=== PATIENT | female | born 1995 | race Caucasian/White ===

== ENCOUNTER 2016-07-23 21:19 | Emergency (ER) ==
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
[2016-07-23 22:45] VITALS: BP 100/66
== END 2016-07-23 22:45 | disposition home or self-care (01) ==
LOC: P.ED 21:19
DX: O9A.212 Injury, poisoning and certain other consequences of external causes complicating pregnancy, second trimester (principal); S00.83XA Contusion of other part of head, initial encounter; Z3A.15 15 weeks gestation of pregnancy; Y04.0XXA Assault by unarmed brawl or fight, initial encounter
CPT/HCPCS: 99283

== ENCOUNTER 2016-12-31 06:37 | Inpatient (IN) ==
[2016-12-31 06:50] LABS: URINE SOURCE VOIDED
[2016-12-31 07:01] LABS: UR BARBITUATES QUAL NONE DETECTED (NONE DETECT); UR BENZODIAZEPIN QUAL NONE DETECTED (NONE DETECT); UR CANNABINOIDS QUAL NONE DETECTED (NONE DETECT); UR COCAINE QUAL NONE DETECTED (NONE DETECT); UR MDMA QUAL NONE DETECTED (NONE DETECT); UR METHADONE QUAL NONE DETECTED (NONE DETECT); UR OPIATES QUAL NONE DETECTED (NONE DETECT); UR OXYCODONE QUAL NONE DETECTED (NONE DETECT); UR PCP QUAL NONE DETECTED (NONE DETECT); UR TCA QUAL NONE DETECTED (NONE DETECT)
[2016-12-31 07:02] LABS: UR METHAMPHETAMINE QUAL PRESUMPTIVE POSITIVE (NONE DETECT)
[2016-12-31 07:03] LABS: UR AMPHETAMINES QUAL PRESUMPTIVE POSITIVE (NONE DETECT)
[2016-12-31] MEDS ORDERED: LR 1,000 ML IV SCH (07:06)
[2016-12-31] MEDS ORDERED: LR 500 ML IV ONE (07:06)
[2016-12-31] MEDS ORDERED: STADOL IV PRN (07:06)
[2016-12-31] MEDS ORDERED: PEPCID PO PRN (07:06)
[2016-12-31] MEDS ORDERED: PEPCID PO ONE (07:06)
[2016-12-31] MEDS ORDERED: PEPCID IV PRN (07:06)
[2016-12-31] MEDS ORDERED: TYLENOL PO PRN (07:06)
[2016-12-31] MEDS ORDERED: REGLAN PO ONE (07:06)
[2016-12-31] MEDS ORDERED: PITOCIN 30 UNITS/LR 30 UNITS/500 ML IV.SOLN IV SCH (07:06)
[2016-12-31] MEDS ORDERED: KEFZOL 1 GM/D5W 1 GM/50 ML IVPB IV PRN (07:06)
[2016-12-31] MEDS ORDERED: ZOFRAN IV PRN (07:06)
[2016-12-31 07:12] LABS: BILIRUBIN URINE NEGATIVE (NEGATIVE); BLOOD URINE TRACE (NEGATIVE); CLARITY SL. CLOUDY (CLEAR); COLOR AMBER; GLUCOSE URINE NEGATIVE (NEGATIVE); LEUKOCYTES URINE 2+ (NEGATIVE); NITRITE URINE NEGATIVE (NEGATIVE); PROTEIN URINE TRACE mg/dL (NEGATIVE); UROBILINOGEN URINE 1+(1 mg/dL)
[2016-12-31] MEDS ORDERED: SODIUM CHLORIDE 0.9% INJ SCH (07:15)
[2016-12-31] MEDS ORDERED: PITOCIN 30 UNITS/LR 30 UNITS/500 ML IV.SOLN ONE (07:21)
[2016-12-31] MEDS ORDERED: LR 2,000 ML ONE (07:21)
[2016-12-31] MEDS ORDERED: AMPICILLIN 2 GM/NS 2 GM/100 ML IVPB ONE (07:23)
[2016-12-31] MEDS ORDERED: NAROPIN 0.2% EPIDURAL SCH (07:30)
[2016-12-31] MEDS ORDERED: XYLOCAINE-MPF 1% INJ ONE (07:30)
[2016-12-31 07:53] LABS: MANUAL DIFF NEEDED? NO
[2016-12-31 07:56] LABS: BASO% 0.1 % (0.0-0.8); EOS# 0.05 X1000 (0.0-0.7); EOS% 0.4 % (0.0-10.0); HEMATOCRIT 31.9 % (37.0-47.0); HEMOGLOBIN 10.6 g/dL (12.0-16.0); IMM GRAN# 0.03 X1000 (0.0-0.04); IMM GRAN% 0.2 % (0.0-0.5); LYMPH# 2.27 X1000 (1.2-3.4); LYMPH% 16.5 % (20.5-51.1); MCHC 33.2 g/dL (33-37); MCV 84.4 FL (81-99); MONO# 0.94 X1000 (0.11-0.59); MONO% 6.8 % (1.7-9.3); PLT 316 X1000 (130-400); RBC 3.78 XMIL (4.2-5.4)
[2016-12-31] MEDS ORDERED: M-M-R II VACCINE SUBQ ONE (11:46)
[2016-12-31] MEDS ORDERED: HYDROXYZINE PO PRN (11:46)
[2016-12-31] MEDS ORDERED: MINERAL OIL PO PRN (11:46)
[2016-12-31] MEDS ORDERED: AMBIEN PO PRN (11:46)
[2016-12-31] MEDS ORDERED: BOOSTRIX VACCINE IM ONE (11:46)
[2016-12-31] MEDS ORDERED: NORCO-5 PO PRN (11:46)
[2016-12-31] MEDS ORDERED: HYDROXYZINE IM PRN (11:46)
[2016-12-31] MEDS ORDERED: BENADRYL PO PRN (11:46)
[2016-12-31] MEDS ORDERED: PERI MEDS (DERMOPLAST/NUPERCAINAL/TUCKS) MISC PRN (11:46)
[2016-12-31] MEDS ORDERED: BENADRYL IV PRN (11:46)
[2016-12-31] MEDS ORDERED: PITOCIN 30 UNITS/LR 30 UNITS/500 ML IV.SOLN IV ONE (11:46)
[2016-12-31] MEDS ORDERED: PITOCIN IM PRN (11:46)
[2016-12-31] MEDS ORDERED: CYTOTEC PO PRN (11:46)
[2016-12-31] MEDS ORDERED: PITOCIN 20 UNITS/LR 20 UNITS/1,000 ML IV.SOLN IV SCH (11:46)
[2016-12-31] MEDS ORDERED: XYLOCAINE-MPF 1% INJ PRN (11:46)
[2016-12-31] MEDS ORDERED: MOTRIN PO PRN (11:46)
--- NOTE | 2016-12-31 12:53 | OPERATIVE NOTE ---
PROCEDURE DATE: 12/31/2016 PREDELIVERY DIAGNOSES: 1. Intrauterine at 39+ weeks active labor. 2. Rh negative blood type. 3. Group B streptococcus carrier positive. 4. History of drug abuse. POST DELIVERY DIAGNOSES: 1. Intrauterine at 39+ weeks active labor. 2. Rh negative blood type. 3. Group B streptococcus carrier positive. 4. History of drug abuse. PROCEDURE: Vaginal delivery. SURGEON: Immanuel. ANESTHESIA: Epidural with Dr. Caceres. FINDINGS: Viable male infant, 7 pounds 13 ounces, 9 and 10 Apgars. Cord was 3 vessels. Placenta was spontaneous, intact. There were no lacerations or tears. Counts were correct. ESTIMATED BLOOD LOSS: 100 mL. DESCRIPTION OF PROCEDURE: Please refer to Ms. Linares's records. She had very late care, was known to be Rh negative and stated she did get a RhoGAM shot, and was checked for beta strep which was positive. She presents in active labor. Received epidural anesthesia. After a dose of antibiotics were given, she was artificially ruptured. She reaches complete cervical dilatation and begins pushing, soon after crowns, at which point the bed is broken down and she was prepped and draped. With continued pushing, she delivered a viable male infant, occiput anterior, over an intact perineum. Once head delivered, shoulders and rest of the body delivered without difficulty, and the was placed on mother's abdomen. The cord was doubly clamped and cut and care of was taken over by nursery personnel. Cord blood was obtained and the cord was inspected and found to be 3 vessels. Then gentle traction on the cord resulted in delivery of the placenta after approximately 3 minutes. It was inspected and found to be intact then discarded. After this, a vaginal sweep was done. There were no clots or foreign material. No lacerations or tears in the vagina or perineum. All counts were correct. Estimated blood loss 100 mL. Routine . cc: MD Nishi Jackson MD
[2016-12-31] MEDS: PERICOLACE PO SCH (21:01)
[2016-12-31] MEDS: HEMOCYTE PLUS CAPSULE PO SCH (21:01)
[2017-01-01] MEDS ORDERED: PRECARE PO SCH (09:00)
--- NOTE | 2017-01-01 11:02 | PROGRESS NOTE ---
DATE: 01/01/2017 SUBJECTIVE: She is day 1. She states no complaints. VITAL SIGNS: Stable. She is afebrile. PHYSICAL EXAMINATION: Within normal limits. SUMMARY: I do not have a hemoglobin at this time. However, she did test positive for methamphetamines and amphetamines. Will continue routine care. Discharge in the morning. cc: MD Nishi Jackson MD
[2017-01-01] MEDS: HEMOCYTE PLUS CAPSULE PO SCH (21:15)
[2017-01-01] MEDS: PERICOLACE PO SCH (21:16)
[2017-01-02] MEDS: HEMOCYTE PLUS CAPSULE PO SCH (08:21)
[2017-01-02 08:24] VITALS: BP 120/58
--- NOTE | 2017-01-02 20:18 | DISCHARGE SUMMARY ---
ADMISSION DATE: 12/31/2016 DISCHARGE DATE: 01/02/2017 ADMIT DIAGNOSES: 1. Term , active labor, late care. 2. Group B streptococcus carrier status positive. 3. Rh negative blood type. 4. History of drug abuse. DISCHARGE DIAGNOSES: 1. Term , active labor, late care. 2. Group B streptococcus carrier status positive. 3. Rh negative blood type. 4. History of drug abuse. CONDITION: Stable. DIET: As tolerated. ACTIVITY: Routine . MEDICATIONS: Motrin 800, she is to resume her vitamins with iron. FOLLOWUP: In 6 weeks. HOSPITAL COURSE: Please refer to Ms. Linares's records and delivery note. She was admitted, had a vaginal delivery, has done well afterwards, currently day 2 desiring discharge. PHYSICAL EXAMINATION: Vital Signs: Stable. She is afebrile. General: She is alert and cooperative, no distress. Neck: Supple. Lungs: Clear. Heart: Regular sinus rhythm. Abdomen: Distended. Uterus is firm, nontender. Extremities: No cyanosis, clubbing, edema in her extremities. LAB: Hemoglobin is 10.6. Will discharge with above instructions. cc: MD Nishi Jackson MD
== END 2017-01-02 12:45 | disposition home or self-care (01) ==
LOC: P.OPLD 06:37 → P.LD 06:39
PROVIDERS: ADMIT Obstetrics & Gynecology; ATTEND Obstetrics & Gynecology